=== PATIENT | male | born 2000 | race African-American/Black ===

== ENCOUNTER 2022-03-07 15:15 | Emergency (ER) | payer MEDICAID ==
[~2022-03-07] VITALS: Ht 165.1 cm; Wt 61.0 kg
[2022-03-07 15:37] VITALS: BP 129/84
[2022-03-07] MEDS ORDERED: CEFTRIAXONE SODIUM 500 MG/VIAL IM ONE (16:30)
[2022-03-07] MEDS ORDERED: DOXY-326 MT (16:34)
[2022-03-10 04:09] LABS: NEISSERIA GONORRHOEAE NAA Negative (Negative)
== END 2022-03-07 18:16 | disposition home or self-care (01) ==
LOC: ER 15:15
DX: Z20.2 Contact with and (suspected) exposure to infections with a predominantly sexual mode of transmission (principal)
CPT/HCPCS: 87491; 87591; 96372; 99283; J0696